=== PATIENT | female | born 1990 | race Hispanic/Latino ===

== ENCOUNTER 2023-06-29 12:10 | Emergency (ER) | payer MEDICARE ==
[~2023-06-29] VITALS: Ht 172.7 cm; Wt 102.1 kg
[2023-06-29 13:08] LABS: BASOPHILS # (AUTO) 0.06 K/uL (0.00-0.20); BASOPHILS % (AUTO) 0.6 % (0.0-5.0); EOSINOPHILS # (AUTO) 0.26 K/uL (0.00-0.70); EOSINOPHILS % (AUTO) 2.5 % (0.0-8.0); HEMATOCRIT 40.2 % (36-48); IMMATURE GRANULOCYTE ABSOLUTE 0.03 K/uL (0-1); LYMPHOCYTES # (AUTO) 4.2 K/uL (1.0-4.8); LYMPHOCYTES % (AUTO) 40.5 % (21.0-51.0); MEAN CORPUSCULAR HEMOGLOBIN 28.6 pg (27.0-33.0); MEAN CORPUSCULAR HGB CONC 33.6 g/dL (32.0-36.0); MEAN CORPUSCULAR VOLUME 85.2 fL (79-99); MONOCYTES # (AUTO) 0.5 K/uL (0.1-1.0); MONOCYTES % (AUTO) 5.1 % (3.0-13.0); NEUTROPHILS # (AUTO) 5.3 K/uL (1.8-7.7); PLATELET COUNT (AUTO) 194 K/uL (130-400); RED BLOOD CELL COUNT(AUTO) 4.72 MIL/uL (4.00-5.50); RED CELL DISTRIBUTION WIDTH 15.6 % (11.0-15.5); WHITE BLOOD COUNT (AUTO) 10.4 K/uL (4.8-10.8)
[2023-06-29] MEDS: 0.9%NACL 1000ML 1,000 ML IV ONE (13:17)
[2023-06-29] MEDS: KETOROLAC 30MG VIAL (30MG/ML) IVP ONE (13:18)
[2023-06-29 13:21] LABS: APPEARANCE,URINE CLOUDY (CLEAR); BILIRUBIN,URINE NEGATIVE (NEGATIVE); COLOR,URINE YELLOW (YELLOW); GLUCOSE, URINE (UA) NEGATIVE (NEGATIVE); KETONES,URINE NEGATIVE (NEGATIVE); LEUKOCYTE ESTERASE ,URINE 250 Leu/uL (NEGATIVE); NITRATE,URINE NEGATIVE (NEGATIVE); OCCULT BLOOD,URINE NEGATIVE (NEGATIVE); PH,URINE 5.5 (5.0-8.0); PROTEIN,URINE NEGATIVE (NEGATIVE); UROBILINOGEN,URINE 0.2 mg/dL (0.2-1.0)
[2023-06-29 13:23] LABS: ALBUMIN 3.3 g/dL (3.5-5.0); BILIRUBIN,TOTAL 0.5 mg/dL (0.2-1.0); CREATININE 0.9 mg/dL (0.5-1.0); POTASSIUM 3.9 mmol/L (3.5-5.1); TOTAL PROTEIN, SERUM 7.9 g/dL (6.0-8.3)
[2023-06-29 13:29] LABS: HCG,QUALITATIVE URINE NEGATIVE (NEGATIVE)
[2023-06-29 13:32] VITALS: BP 130/90; PULSE 61; RESP 14
[2023-06-29 13:33] LABS: ADD UA MICROSCOPIC YES
[2023-06-29 13:35] LABS: BACTERIA,URINE RARE /HPF (None Seen); SQUAMOUS EPITHELIAL CELL,UR MANY /HPF (0-2)
[2023-06-29] MEDS ORDERED: AMOX1TAB16 PO (15:11)
[2023-06-29] MEDS ORDERED: PHEN-847 PO (15:11)
== END 2023-06-29 16:31 | disposition home or self-care (01) ==
LOC: EDH 12:10
DX: N30.01 Acute cystitis with hematuria (principal); N23 Unspecified renal colic; Z88.5 Allergy status to narcotic agent
CPT/HCPCS: 99285; 74176; 96374; 96361; 80053; 83690; 85025; 87088; 81001; 81025; 36415; J7030; J1885

== ENCOUNTER 2023-07-18 13:13 | Emergency (ER) | payer MEDICARE ==
[~2023-07-18] VITALS: Ht 172.7 cm; Wt 103.9 kg
[~2023-07-18 13:13] MED LIST: AMOX1TAB16 PO; PHEN-847 PO
[2023-07-18 13:58] LABS: BASOPHILS # (AUTO) 0.04 K/uL (0.00-0.20); BASOPHILS % (AUTO) 0.3 % (0.0-5.0); EOSINOPHILS # (AUTO) 0.19 K/uL (0.00-0.70); EOSINOPHILS % (AUTO) 1.4 % (0.0-8.0); HEMATOCRIT 43.5 % (36-48); IMMATURE GRANULOCYTE ABSOLUTE 0.05 K/uL (0-1); LYMPHOCYTES # (AUTO) 2.3 K/uL (1.0-4.8); LYMPHOCYTES % (AUTO) 16.4 % (21.0-51.0); MEAN CORPUSCULAR HEMOGLOBIN 29.1 pg (27.0-33.0); MEAN CORPUSCULAR HGB CONC 33.1 g/dL (32.0-36.0); MEAN CORPUSCULAR VOLUME 87.9 fL (79-99); MONOCYTES # (AUTO) 0.8 K/uL (0.1-1.0); MONOCYTES % (AUTO) 5.5 % (3.0-13.0); NEUTROPHILS # (AUTO) 10.7 K/uL (1.8-7.7); PLATELET COUNT (AUTO) 207 K/uL (130-400); RED BLOOD CELL COUNT(AUTO) 4.95 MIL/uL (4.00-5.50); RED CELL DISTRIBUTION WIDTH 14.8 % (11.0-15.5); WHITE BLOOD COUNT (AUTO) 14.1 K/uL (4.8-10.8)
[2023-07-18 14:09] LABS: ALBUMIN 3.2 g/dL (3.5-5.0); BILIRUBIN,TOTAL 0.6 mg/dL (0.2-1.0); CREATININE 0.9 mg/dL (0.5-1.0); POTASSIUM 4.1 mmol/L (3.5-5.1); TOTAL PROTEIN, SERUM 7.9 g/dL (6.0-8.3)
[2023-07-18] MEDS: ONDANSETRON ODT 4MG TAB SL ONE (14:25)
[2023-07-18] MEDS: METOCLOPRAMIDE 10 MG TABLET PO ONE (14:25)
[2023-07-18] MEDS: FAMOTIDINE 20MG TAB PO ONE (14:25)
[2023-07-18 14:53] LABS: APPEARANCE,URINE CLOUDY (CLEAR); BILIRUBIN,URINE NEGATIVE (NEGATIVE); COLOR,URINE YELLOW (YELLOW); GLUCOSE, URINE (UA) NEGATIVE (NEGATIVE); KETONES,URINE NEGATIVE (NEGATIVE); LEUKOCYTE ESTERASE ,URINE 500 Leu/uL (NEGATIVE); NITRATE,URINE 2+ (NEGATIVE); PH,URINE 5.5 (5.0-8.0); PROTEIN,URINE 20 mg/dL (NEGATIVE); UROBILINOGEN,URINE 0.2 mg/dL (0.2-1.0)
[2023-07-18 15:01] LABS: ADD UA MICROSCOPIC YES
[2023-07-18 15:03] LABS: BACTERIA,URINE FEW /HPF (None Seen); MUCUS,URINE RARE LPF (None Seen); NON-SQUAMOUS EPITHELIAL CELL 4 /HPF (0-2); SQUAMOUS EPITHELIAL CELL,UR FEW /HPF (0-2); WBC,URINE 51-100 /HPF (0-1)
[2023-07-18] MEDS ORDERED: ONDA4TAB10 PO (16:21)
[2023-07-18] MEDS ORDERED: CEFD300C3 PO (16:21)
[2023-07-18 16:44] VITALS: BP 141/84; PULSE 81; RESP 18; O2SAT 99
== END 2023-07-18 17:01 | disposition home or self-care (01) ==
LOC: EDH 13:13
DX: K58.1 Irritable bowel syndrome with constipation (principal); K57.90 Diverticulosis of intestine, part unspecified, without perforation or abscess without bleeding; N39.0 Urinary tract infection, site not specified; E11.9 Type 2 diabetes mellitus without complications; Z79.899 Other long term (current) drug therapy; Z90.710 Acquired absence of both cervix and uterus; Z98.890 Other specified postprocedural states; Z88.8 Allergy status to other drugs, medicaments and biological substances; Z88.5 Allergy status to narcotic agent
CPT/HCPCS: 36415; 74021; 80053; 81001; 81025; 85025; 87077; 87088; 87186

== ENCOUNTER 2024-09-13 20:25 | Emergency (ER) | payer MEDICARE ==
[~2024-09-13] VITALS: Ht 172.7 cm; Wt 127.0 kg
[~2024-09-13 20:25] MED LIST changes: +CEFD300C3 PO; +ONDA-243 PO
[2024-09-13] MEDS: NEOMY SULF/BACITRA/POLYMYXIN B 1 EACH PACKET TP ONE (21:04)
[2024-09-13] MEDS: LIDOCAINE HCL 1% 20 ML VIAL INJ ONE (21:04)
[2024-09-13] MEDS ORDERED: CEPH500B PO (21:50)
--- NOTE | 2024-09-13 21:51 | ERN ---
ED Note History of Present Illness Stated Complaint: LACERATION L WRIST Chief Complaint: Laceration/Avulsion Time Seen by MD: 20:29 Time Seen by Midlevel: 20:29 Dictation: The patient is a 34-year-old female with a history of diabetes, anxiety, bipolar who presents to the emergency department with complaints of laceration to left wrist onset prior to arrival. Patient reports that she was shaving when she accidentally injured her wrist. Patient denies any suicidal or homicidal ideations. Patient unknown last tetanus. Allergies: Coded Allergies: morphine (Unverified Allergy, Unknown, 06/29/23) Home Meds Active Scripts Ondansetron (Ondansetron Odt) 4 Mg Tab.rapdis, 4 MG PO Q4H PRN for NAUSEA, #20 TAB Prov:VALDO FLOWERSLUPE RIGGING ENGINEER 07/18/23 Cefdinir (Cefdinir) 300 Mg Capsule, 300 MG PO BID for 10 Days, #20 CAP Prov:FLOWERSDAYRONMARTHA RIGGING ENGINEER 07/18/23 Phenazopyridine HCl (Pyridium) 200 Mg Tab, 200 MG PO TIDPC for 5 Days, #15 TAB TAKE WITH FOOD TO PREVENT STOMACH UPSET. Prov:DO CHRISTENSEN NP 06/29/23 Amoxicillin/Potassium Clav (Amox Tr-K Clv 875-125 mg Tab) 875 Mg-125 Mg Tablet, 1 EACH PO BID for 7 Days, #14 TAB 0 Refills Prov:DO CHRISTENSEN [facility]END[facility] 06/29/23 Past Medical History Past Medical History: Anxiety, Bipolar, Diabetes-Type II, Kidney Stone Additional Past Medical Hx: PTSD Surgical History: Hysterectomy, Cholecystectomy, Family History: Negative Social History: Negative, Lives with family RN Note Reviewed/Agreed w/PFSH: Yes Review of System Dictation Constitutional: Negative for fever,chills, and weight loss Eyes: Negative for injury, pain,redness, and discharge ENT: Negative for injury,pain or swelling Cardiovascular: Negative for chest pain, palpitations, and edema Respiratory: Negative for shortness of breath, cough, and wheezing, Abdomen/GI: Negative for abdominal pain, nausea, vomiting, diarrhea, and constipation Back: Negative for injury and pain : Negative for injury, bleeding and discharge MS/Extremity: Negative for injury and deformity Skin: Positive for laceration to left wrist Neuro: Negative for headache, weakness, numbness, tingling, and seizure Psych: Negative for suicide ideation, homicidal ideation, and hallucinations Initial Vital Sign VS Vital Signs Date Time Temp Pulse Resp B/P (MAP) Pulse Ox O2 Delivery O2 Flow Rate FiO2 09/13/24 20:27 98.8 86 16 103/55 94 Room Air 0 Physical Exam Dictation Vital Signs reviewed General Appearance: Alert, oriented x 3, no acute distress, well developed, nourished. Head and Face: non-traumatic. Eyes: PERRL, pink conjunctivas, eyelid no trauma, anterior chamber with arcus senilis. Ears: Pinnas intact and no signs of trauma or erythema ear canals clear and no discharge TM no erythema Nose: No discharge, no bleeding. Oropharynx: Mouth normal, tongue pink. pharynx clear,no erythema, tonsils no exudates, no abscesses noted, mucous membrane moist Neck: Supple, non-tender, no thyromegaly, no masses, no JVD, no bruits Breast:Deferred Chest:No tenderness, no crepitus, no paradoxical movement, no retractions Lungs:Clear, well-ventilated, symmetric, no rales, no wheezing, no rhonchi, no stridor, good breath sounds bilaterally Heart: Regular rate, regular rhythm, no murmur, no gallops Vascular: no peripheral edema, radial pulses 3+ bilaterally, cap refill to left hand less than 2 seconds Abdomen: Soft, positive bowel sounds, nondistended, no guarding, nontender, no rebound, no masses no hepatomegaly, no splenomegaly, no Hernandez's sign, no hernias. Rectal: Deferred Genital: Deferred Neurological: Normal speech, motor function intact, sensory function intact Musculoskeletal: Neck nontender, full range of motion, back nontender, full range of motion, Extremities: nontender, full range of motion Skin: Color pink, dry, no turgor, no rash, no abrasions, no contusions. Horizontal 3 cm laceration to left wrist, bleeding controlled with dressing. Lymphatic: Deferred Results (Laboratory/Radiology) Labs Reviewed?: Yes ED Course ED Course Orders Procedure Category Date Status Time Lidocaine Hcl 1% 20ml PHA 09/13/24 Complete Vial (Lidocaine Hc 21:00 Tetanus,Diphtheria PHA 09/13/24 Complete Tox [Adult] (Diphther 21:00 Acetaminophen 500mg PHA 09/13/24 Complete Tab (Tylenol 500mg T 21:00 Neomy PHA 09/13/24 Complete Sulf/Bacitra/Polymyxin 21:00 Current Medications Medications (Trade) Dose Ordered Sig/Riley Route PRN Reason Start Time Stop Time Status Last Admin Dose Admin Acetaminophen (TYLenol 500MG TAB) 1,000 mg ONCE ONCE PO 09/13/24 21:00 09/13/24 21:01 DC 09/13/24 21:14 Lidocaine HCl (Lidocaine HCl 1% 20ml Vial) 10 ml ONCE ONCE INJ 09/13/24 21:00 09/13/24 21:01 DC 09/13/24 21:04 Neomycin/ Polymyxin/ Bacitracin (Triple Antibiotic Ointment) 1 appl ONCE ONCE TP 09/13/24 21:00 09/13/24 21:01 DC 09/13/24 21:04 Tetanus/ Diphtheria Toxoids Adsorbed (DiphthERIA-teTANUS TOXOID [ADULT]/ DECAVAC) 0.5 ml ONCE ONCE IM 09/13/24 21:00 09/13/24 21:01 DC 09/13/24 21:16 Vital Signs Date Time Temp Pulse Resp B/P (MAP) Pulse Ox O2 Delivery O2 Flow Rate FiO2 09/13/24 20:27 98.8 86 16 103/55 94 Room Air 0 Medical Decision Making MDM The patient is a 34-year-old female with a history of diabetes, anxiety, bipolar who presents to the emergency department with complaints of laceration to left wrist onset prior to arrival. Patient reports that she was shaving when she accidentally injured her wrist. Patient denies any suicidal or homicidal ideations. Patient unknown last tetanus. Patient with laceration to left wrist about3 cm. Laceration was repaired and cleaned. Tetanus was updated. Patient neurovascularly intact. Patient denies suicidal or homicidal ideations. Reports this was accidental. Patient denies any recent suicidal attempt. Denies any hopelessness. Patient denies any hallucinations. Patient calm and cooperative during visit. Patient in no acute distress. Bleeding was controlled after sutures were repair. Patient tolerated sutures well. Patient instructed to follow up with PCP. Wound care discussed with the patient. Differential diagnosis: Laceration, abrasion, abrasion Need for hospitalization: Patient does not meet criteria for hospitalization. There are no social concerns with this patient. Procedure Procedure Dictation: Time and Date Performed: 09/13/2024 INDICATION: Laceration Location: Left wrist Informed consent was obtained. Pre-procedure time out was obtained. Anesthetic: 1% lidocaine Manual prep of skin and wound was done with hibiclens. Foreign Body: NO foreign bodies were identified. Length Repaired: 3 cm Suture used: Three Ethilon # of simple sutures: 4 Aseptic technique was used during the entire procedure. Wound Location: upper extremity Wound's Depth, Shape: superficial, linear Wound Explored: clean Betadine Prep?: Yes Anesthesia: 1% Lidocaine Volume Anesthetic (ccs): 8 Wound Debrided: minimal Wound Repaired With: sutures Suture Size/Type: 3:0, nylon Number of Sutures: 4 DX & DISP Disposition: Discharge Departure Impression: Primary Impression: Laceration of left wrist Condition: Stable Scripts Cephalexin Monohydrate (Keflex) 500 Mg Cap 500 MG PO QID for 7 Days, #28 CAP Prov: JASMYN DELGADO RIGGING ENGINEER 09/13/24 Additional Instructions: Keep your stitches clean and dry. Do not put your stitches under water, such as in a bath, pool, or wright. This can slow healing and raise your chance of getting an infection. Avoid activities or sports that could hurt the area of your stitches for 1-2 weeks. You should call your doctor if you develop any fever, redness or swelling around the cut, or pus draining from the cut. Your sutures will need to be removed in 7-10 days. Please follow up with the your doctor to get stitches removed. Take your medications as prescribed. If anything worsens please return FOLLOW-UP WITH PRIMARY CARE PROVIDER IN 1 TO 2 DAYS. TAKE MEDICATIONS DIRECTED HERE IN THE EMERGENCY ROOM. OKAY TO CONTINUE HOME MEDICATIONS UNLESS OTHERWISE DISCUSSED DURING YOUR VISIT IN THE EMERGENCY ROOM TODAY. RETURN TO YOUR NEAREST EMERGENCY ROOM IF SYMPTOMS WORSEN OR IF THERE IS NO IMPROVEMENT. CALL 911 IF YOU NEED IMMEDIATE ASSISTANCE. TAKE TYLENOL [id number] NEEDED AND IF NO CONTRAINDICATIONS ARE PRESENT. INCREASE ORAL HYDRATION. A WOUND CULTURE OR URINE CULTURE WAS ORDERED HERE IN THE EMERGENCY ROOM DEPARTMENT PLEASE FOLLOW-UP WITH PRIMARY CARE PROVIDER AND ADVISE THEM TO GET REPEAT PORTS FROM OUR FACILITY. IF YOU HAD ANY CRICKET WRAP/SPLINTS THAT WERE APPLIED HERE, PLEASE DO NOT REMOVE THEM UNTIL YOU SEE YOUR PRIMARY CARE OR SPECIALTY. Referrals: AKUA LEO (PCP) Time of Disposition: 21:50 I have reviewed the case, and I agree with, Diagnosis and Plan JASMYN DELGADO [facility] Sep 13, 2024 21:51
[2024-09-13 21:53] VITALS: BP 125/68; PULSE 83; RESP 16; TEMP 97.9; O2SAT 100
== END 2024-09-13 22:00 | disposition home or self-care (01) ==
LOC: EDH 20:25
DX: S61.512A Laceration without foreign body of left wrist, initial encounter (principal); E11.9 Type 2 diabetes mellitus without complications; F31.9 Bipolar disorder, unspecified; Z87.442 Personal history of urinary calculi; Z88.5 Allergy status to narcotic agent; Z90.49 Acquired absence of other specified parts of digestive tract; Z90.710 Acquired absence of both cervix and uterus; W26.8XXA Contact with other sharp object(s), not elsewhere classified, initial encounter; Y93.89 Activity, other specified; Y92.89 Other specified places as the place of occurrence of the external cause; Y99.8 Other external cause status
CPT/HCPCS: 12002; 90471; 90714; 99283

== ENCOUNTER 2024-12-09 18:01 | Emergency (ER) | payer MEDICARE ==
[~2024-12-09] VITALS: Ht 175.3 cm; Wt 136.1 kg
[~2024-12-09 18:01] MED LIST changes: +CEPH500B PO
--- NOTE | 2024-12-09 18:21 | ERN ---
ED Note History of Present Illness Stated Complaint: SUDDEN ONSET BLURRED VISION OS AND L ARM TINGLING Chief Complaint: Dizzy/Light Headed Time Seen by MD: 18:05 Time Seen by Midlevel: 18:05 Dictation: Ms. Pelayo is a 34-year-old female with history of obesity, type 2 diabetes, chronic back pain, anxiety, bipolar depression, PTSD, kidney stones, and GERD who was transported via EMS to the emergency department for evaluation of vision changes. She states that at around 1620 she was cooking a meal when she she became dizzy and she had blurriness from her left eye. She states that she had discomfort to the entirety of the left arm and it felt prickly. She states she has had the same episodes of blurred vision in the past; not recently. She denies recent illness, trauma/fall, fever, chills, shortness of breath, cough, chest pain, palpitations, edema, abdominal pain, nausea, vomiting, hematemesis, constipation, diarrhea, melena, hematochezia, dysuria, headache, seizure, dysarthria, dysphasia, or focal weakness. She denies history of migraine headaches. Her symptoms persisted so she called 911. They report Accu-Chek 141. Upon arrival to the ER normotensive and afebrile with room air SpO2 96%. She states that vision changes have resolved but she still has some discomfort to her left she has no focal weakness, dysarthria, or dysphasia NIHSS=1 PCP: Dr. Chano Leal[facility] Allergies: Coded Allergies: morphine (Unverified Allergy, Unknown, 06/29/23) Home Meds Active Scripts Cephalexin Monohydrate (Keflex) 500 Mg Cap, 500 MG PO QID for 7 Days, #28 CAP Prov:JASMYN DELGADO FIELD CONTRACTOR 09/13/24 Ondansetron (Ondansetron Odt) 4 Mg Tab.rapdis, 4 MG PO Q4H PRN for NAUSEA, #20 TAB Prov:FLOWERSDAYRONMARTHA FIELD CONTRACTOR 07/18/23 Cefdinir (Cefdinir) 300 Mg Capsule, 300 MG PO BID for 10 Days, #20 CAP Prov:FLOWERS,MARTHA FIELD CONTRACTOR 07/18/23 Phenazopyridine HCl (Pyridium) 200 Mg Tab, 200 MG PO TIDPC for 5 Days, #15 TAB TAKE WITH FOOD TO PREVENT STOMACH UPSET. Prov:DO CHRISTENSEN FIELD CONTRACTOR 06/29/23 Amoxicillin/Potassium Clav (Amox Tr-K Clv 875-125 mg Tab) 875 Mg-125 Mg Tablet, 1 EACH PO BID for 7 Days, #14 TAB 0 Refills Prov:DO CHRISTENSEN FIELD CONTRACTOR 06/29/23 Past Medical History Past Medical History: Anxiety, Bipolar, Diabetes-Type II, Kidney Stone, Other (obesity) Additional Past Medical Hx: PTSD Surgical History: Hysterectomy, Cholecystectomy, , Unknown (Ex lap) PSYCH History: anxiety, bipolar, depression, other (PTSD) Family History: Negative Social History: Negative, Lives with family History: Not Applicable RN Note Reviewed/Agreed w/PFSH: Yes Review of System Dictation REVIEW OF SYSTEMS: CONSTITUTIONAL: Patient denies fevers, chills, sweats and weight changes. EYES: Patient denies any visual symptoms. EARS, NOSE, AND THROAT: No difficulties with hearing. No symptoms of rhinitis or sore throat. CARDIOVASCULAR: Patient denies chest pains, palpitations, orthopnea and paroxysmal nocturnal dyspnea. RESPIRATORY: No dyspnea on exertion, no wheezing or cough. GI: No nausea, vomiting, diarrhea, constipation, abdominal pain, hematochezia or melena. : No urinary hesitancy or dribbling. No nocturia or urinary frequency. No abnormal urethral discharge. MUSCULOSKELETAL: No myalgias or arthralgias. Reported left arm pain. NEUROLOGIC: No chronic headaches, no seizures. Patient denies focal weakness, difficulty speaking, facial droop, difficulty swallowing. Reports blurred vision to left eye. Reports "prickly" sensation to left arm. PSYCHIATRIC: Patient denies problems with mood disturbance. No problems with anxiety. Denies recent stressors. ENDOCRINE: No excessive urination or excessive thirst. DERMATOLOGIC: Patient denies any rashes or skin changes. Initial Vital Sign VS Vital Signs Date Time Temp Pulse Resp B/P (MAP) Pulse Ox O2 Delivery O2 Flow Rate FiO2 12/09/24 18:09 98.8 73 16 122/72 96 Room Air 0 12/09/24 19:19 21 Physical Exam Dictation Vital signs: Reviewed. Afebrile. Constitutional: Slightly anxious. Head/Face: Normocephalic, atraumatic. Eyes: Periorbital areas with no swelling, redness, or edema. Lids and lashes are normal. Conjunctival injection is absent. Sclera anicteric. Pupils equal, round, reactive to light. ENT: Pinnas intact and no signs of trauma or erythema. Ear canals clear and no discharge. TMs no erythema. No nasal discharge or bleeding noted. Oropharynx with no exudate, redness, swelling, masses, exudates, or evidence of obstruction. Uvula midline. Mucous membranes moist. Neck: Trachea midline, no masses palpated, and no cervical lymphadenopathy. No swelling. Supple, full range of motion. Chest/Axilla: No tenderness, no crepitus, no paradoxical movement, no retractions. Cardiovascular: Regular rate, regular rhythm, no murmur, no gallops. Symmetric pulses. No peripheral edema. Normotensive; BP 122/72. 12 lead EKG reflects a sinus rhythm. Respiratory: Respirations even and unlabored. Lung sounds clear; no wheezes, rales or rhonchi. Room air spo2 96% Gastrointestinal: Obese. No distention is appreciated. Bowel sounds are normal. No mass or organomegaly . There is no tenderness. No rebound. No rigidity. No voluntary or involuntary guarding. No Hernandez's sign. Neurological: Normal speech, gross motor function intact, speech is clear. No facial droop. No focal weakness. Motor strength 5/5 all extremities. Musculoskeletal/Extremities: All extremities have full range of motion, no pain or tenderness on palpation. Symmetric pulses. Integumentary: Intact. Skin is normal color, warm and dry. Cap refill less than 2 seconds. Results (Laboratory/Radiology) Laboratory/Radiology Laboratory Tests Test 12/09/24 18:28 12/09/24 19:18 White Blood Count 11.8 K/uL (4.8-10.8) H Red Blood Count 4.20 MIL/uL (4.00-5.50) Hemoglobin 12.5 g/dL (12.0-16.0) Hematocrit 38.7 % (36-48) Mean Corpuscular Volume 92.1 fL (79-99) Mean Corpuscular Hemoglobin 29.8 pg (27.0-33.0) Mean Corpuscular Hemoglobin Concent 32.3 g/dL (32.0-36.0) Red Cell Distribution Width 13.2 % (11.0-15.5) Platelet Count 193 K/uL (130-400) Mean Platelet Volume 11.5 fL (7.5-10.5) H Immature Granulocyte % (Auto) 0.3 % (0-1) Neutrophils (%) (Auto) 60.0 % (40.0-77.0) Lymphocytes (%) (Auto) 30.4 % (21.0-51.0) Monocytes (%) (Auto) 5.9 % (3.0-13.0) Eosinophils (%) (Auto) 2.7 % (0.0-8.0) Basophils (%) (Auto) 0.7 % (0.0-5.0) Neutrophils # (Auto) 7.1 K/uL (1.8-7.7) Lymphocytes # (Auto) 3.6 K/uL (1.0-4.8) Monocytes # (Auto) 0.7 K/uL (0.1-1.0) Eosinophils # (Auto) 0.32 K/uL (0.00-0.70) Basophils # (Auto) 0.08 K/uL (0.00-0.20) Absolute Immature Granulocyte (auto 0.03 K/uL (0-1) Nucleated Red Blood Cells 0.0 % (0.0-0.19) Sodium Level 139 mmol/L (136-145) Potassium Level 4.1 mmol/L (3.5-5.1) Chloride Level 103 mmol/L (101-111) Carbon Dioxide Level 25 mmol/L (21-32) Blood Urea Nitrogen 9 mg/dL (7-18) Creatinine 1.1 mg/dL (0.5-1.0) H Glomerular Filtration Rate Calc 67 mL/min (>90) Random Glucose 151 mg/dL (70-105) H Total Calcium 8.2 mg/dL (8.5-10.1) L Magnesium Level 2.00 mg/dL (1.80-2.40) Total Bilirubin 0.3 mg/dL (0.2-1.0) Direct Bilirubin 0.1 mg/dL (0.0-0.3) Aspartate Amino Transf (AST/SGOT) 12 U/L (10-37) Alanine Aminotransferase (ALT/SGPT) 15 U/L (12-78) Alkaline Phosphatase 98 U/L (50-136) Troponin I High Sensitivity < 4 ng/L (4-50) L Total Protein 7.0 g/dL (6.0-8.3) Albumin 3.2 g/dL (3.5-5.0) L Serum Alcohol < 3 mg/dL (0-10) Urine Color YELLOW (YELLOW) Urine Appearance CLEAR (CLEAR) Urine pH 5.5 (5.0-8.0) Urine Specific [place] 1.022 (1.001-1.031) Urine Protein NEGATIVE mg/dL (NEGATIVE) Urine Glucose (UA) NEGATIVE mg/dL (NEGATIVE) Urine Ketones NEGATIVE mg/dL (NEGATIVE) Urine Occult Blood NEGATIVE (NEGATIVE) Urine Nitrate NEGATIVE (NEGATIVE) Urine Bilirubin NEGATIVE mg/dL (NEGATIVE) Urine Urobilinogen 0.2 mg/dL (0.2-1.0) Urine Leukocyte Esterase NEGATIVE Mitch/uL Urine Opiates Screen NEGATIVE (NEGATIVE) Urine Barbiturates Screen NEGATIVE (NEGATIVE) Urine Phencyclidine Screen NEGATIVE (NEGATIVE) Urine Amphetamines Screen NEGATIVE (NEGATIVE) Urine Benzodiazepines Screen NEGATIVE (NEGATIVE) Urine Cocaine Screen NEGATIVE (NEGATIVE) Urine Marijuana (THC) Screen POSITIVE (NEGATIVE) H Labs Reviewed?: Yes EKG Comment: EKG Interpretation: Time Reviewed: 1905 Ventricular rate: 69 bpm MD Interval: 173 ms QRS duration: [address] segment elevation or depression Clinical impression: Sinus rhythm EKG Reviewed and interpreted by Cynthia Lombardo CT Scan Comment: PATIENT: NILE PELAYO MR#: [id number] : 1990 SEX: F AGE: 34 LOCATION: [facility] ORDER 16 STATUS: [facility] REPORT#: [id number] SERVICE 15 REASON: dizziness, left eye blurriness, left arm "prickly" feeling ORDERING PHYSICIAN: JOSHUA VEGA PROCEDURE: HEAD WO - CT HEAD/BRAIN W/O CONTRAST EXAM: CT Head Without IV contrast. CLINICAL HISTORY: dizziness, left eye blurriness, left arm "prickly" feeling TECHNIQUE: Axial computed tomography images of the head/brain without intravenous contrast. COMPARISON: None provided. FINDINGS: BRAIN: No evidence of acute hemorrhage. No mass lesion. No CT evidence for acute territorial infarct. No midline shift or extra-axial collections. VENTRICLES: No hydrocephalus. ORBITS: The orbits are unremarkable. SINUSES AND MASTOIDS: The paranasal sinuses and mastoid air cells are clear. BONES: No fracture. SOFT TISSUES: Unremarkable. IMPRESSION: No acute intracranial abnormality. /[place] DICTATED BY: SHAJI HUFF MD DATE: 12/09/242006 ELECTRONICALLY SIGNED BY: SHAJI HUFF MD DATE: 12/09/242006 ED Course ED Course Orders Procedure Category Date Status Time Cbc With Differential LAB 12/09/24 Complete 18:15 Basic Metabolic Panel LAB 12/09/24 Complete 18:15 Magnesium LAB 12/09/24 Complete 18:15 12 Lead Ekg Tracing- EKG 12/09/24 Complete Technical 18:15 Hepatic Function Panel LAB 12/09/24 Complete 18:15 Troponin I High LAB 12/09/24 Complete Sensitivity 18:15 Urinalysis Profile LAB 12/09/24 Complete 18:15 Alcohol, Blood LAB 12/09/24 Complete 18:15 Drug Screen Urine LAB 12/09/24 Complete 18:15 Visual Acuity Test CPOE 12/09/24 Transmitted (Er) 18:15 Ct Head/Brain W/O CT 12/09/24 Resulted Contrast 18:16 0.9% Nacl 500ml PHA 12/09/24 Complete Iv.Soln (Ns 500ml 20:00 Ketorolac PHA 12/09/24 In Process Tromethamine 15mg/Ml 20:30 Current Medications Medications (Trade) Dose Ordered Sig/Riley Route PRN Reason Start Time Stop Time Status Last Admin Dose Admin Ketorolac Tromethamine (toRADol) 15 mg ONCE ONCE IV 12/09/24 20:30 12/09/24 20:31 Sodium Chloride 500 ml @ 0 mls/hr ONCE ONCE IV 12/09/24 20:00 12/09/24 20:01 DC Vital Signs Date Time Temp Pulse Resp B/P (MAP) Pulse Ox O2 Delivery O2 Flow Rate FiO2 12/09/24 19:19 98.4 73 18 127/67 99 Room Air* 0 21 12/09/24 18:09 98.8 73 16 122/72 96 Room Air 0 Vital signs unremarkable; normotensive and afebrile withroom air spo2 96-99%. Speech is clear, no dysphagia, no dysarthria, no focal weakness. 12 lead EKG reflects a sinus rhythm without ST elevation. STAT noncontrast CT scan of the brain unremarkable. Visual acuity: OD 20/40, OD 20/30, OU 20/40. Laboratory findings as noted below. WBC 11.8, cr 1.1, glucose 151, Ca 8.2, and albumin 3.2. ETOH negative. UDS + marijuana. UA clear. While in the ED she received doses Toradol and NS 500ml IV as bolus. She is wanting to take her home medications. findings were discussed with patient and significant other. Medical Decision Making MDM MDM: Differential diagnosis: IC hemorrhage/CVA, dehydration, ACS, UTI Rationale: Tests considered and ordered secondary to shared decision making include: lab, EKG, CT Previous outside records reviewed: Old ER visits. Risk of complication and/or morbidity or mortality of patient management: None Medications-Per medication reconciliation Need for hospitalization: Patient does not meet criteria for hospitalization. Need for emergency major/minor surgery: No There are no social concerns with this patient. Prescription drug management: None; resume home medications Prescriptions will include symptomatic care Patient's prior external medical records from other ER visits were reviewed by me as indicated. Prior testing and results from previous visits were reviewed. Prior tests were taken into account with medical decision making and resource utilization, independent historian/historians were used to obtain complete medical history. I independently interpreted the test that were performed, results were reviewed by me and considered findings on radiology if ordered. Medical management and examination interpretation discussions were had by me with other qualified healthcare professionals as indicated for the patient's care. DX & DISP Disposition: Discharge Departure Impression: Primary Impression: Blurring of visual image of left eye Additional Impressions: Arm pain, left, Dehydration, mild, Type 2 diabetes mellitus Condition: Stable Additional Instructions: Rest today and avoid strenuous activity or driving until symptoms have completely resolved. Increase her oral hydration (drink at least 6-8 glasses of water daily). Resume normal meals to help stabilize blood sugar and fluid balance. Continue your home meds as prescribed. Follow up with your primary care physician in 3-5 days to review disease results (available on patient portal). You may benefit from referral to Neurology or Ophthalmology for recurrent vision changes. Continue monitoring blood glucose levels. Return to the emergency department immediately if you develop: Recurrent/worsening blurred or double vision. New weakness, numbness, slurred speech, facial drooping, or confusion. Severe sudden headache. Persistent vomiting, chest pain, or shortness of breath. Dizziness or fainting that does not improve with fluids. Avoid marijuana, alcohol or sedating substances which may worsened dizziness or interact with prescribed medications. Keep a record of any future vision or numbness episodes-include time of day, duration, and any triggers. Maintain good hydration, regular meals and adequate rest to prevent reoccurrence. Referrals: CHANO LEAL (PCP) Time of Disposition: 20:25 JOSHUA VEGAP Dec 09, 2024 18:21
[2024-12-09 18:36] LABS: IMMATURE GRANULOCYTE ABSOLUTE 0.03 K/uL (0-1); NUCLEATED RED BLOOD CELLS 0.0 % (0.0-0.19); PLATELET COUNT (AUTO) 193 K/uL (130-400); RED BLOOD CELL COUNT(AUTO) 4.20 MIL/uL (4.00-5.50); RED CELL DISTRIBUTION WIDTH 13.2 % (11.0-15.5); WHITE BLOOD COUNT (AUTO) 11.8 K/uL (4.8-10.8)
[2024-12-09 18:44] LABS: CREATININE 1.1 mg/dL (0.5-1.0); GLOMERULAR FILTR. RATE CALC 67 mL/min (>90); GLUCOSE,RANDOM 151 mg/dL (70-105); SODIUM SERUM 139 mmol/L (136-145); UREA NITROGEN, BLOOD 9 mg/dL (7-18)
[2024-12-09 18:56] LABS: ALCOHOL, BLOOD < 3 mg/dL (0-10); ASPARTATE AMINOTRANSFERASE 12 U/L (10-37); TOTAL PROTEIN, SERUM 7.0 g/dL (6.0-8.3)
--- NOTE | 2024-12-09 19:07 | HMCIMG ---
EXAM: CT Head Without IV contrast. CLINICAL HISTORY: dizziness, left eye blurriness, left arm "prickly" feeling TECHNIQUE: Axial computed tomography images of the head/brain without intravenous contrast. COMPARISON: None provided. FINDINGS: BRAIN: No evidence of acute hemorrhage. No mass lesion. No CT evidence for acute territorial infarct. No midline shift or extra-axial collections. VENTRICLES: No hydrocephalus. ORBITS: The orbits are unremarkable. SINUSES AND MASTOIDS: The paranasal sinuses and mastoid air cells are clear. BONES: No fracture. SOFT TISSUES: Unremarkable. IMPRESSION: No acute intracranial abnormality. /[place]
--- NOTE | 2024-12-09 19:38 | EKG ---
[facility] Test Date: 2024-12-09 Test Time: 19:06:54 Pat Name: NILE PELAYO Department: [facility] Room: Gender: F Nurses' Aide: [id number] : 1990 Requested By: JOSHUA VEGA Order Number: [id number] Reading MD: Katharina White Measurements Intervals [place] Rate: 69 P: 44 MI: 173 QRS: -19 QRSD: 90 T: 45 QT: 420 QTc: 449 Interpretive Statements Sinus rhythm No previous ECG available for comparison Electronically Signed On 12-10-2024 10:25:44 CDT by Katharina White Please click the below link to view image of tracing.
[2024-12-09 19:41] LABS: APPEARANCE,URINE CLEAR (CLEAR); GLUCOSE, URINE (UA) NEGATIVE (NEGATIVE); LEUKOCYTE ESTERASE ,URINE NEGATIVE Leu/uL (NEGATIVE); NITRATE,URINE NEGATIVE (NEGATIVE); OCCULT BLOOD,URINE NEGATIVE (NEGATIVE)
[2024-12-09 19:46] LABS: ADD UA MICROSCOPIC NO
[2024-12-09 19:49] LABS: AMPHET/METH SCREEN,URINE NEGATIVE (NEGATIVE); BARBITURATE SCREEN, URINE NEGATIVE (NEGATIVE); CANNABINOID SCREEN,URINE POSITIVE (NEGATIVE); COCAINE SCREEN,URINE NEGATIVE (NEGATIVE)
[2024-12-09] MEDS: 0.9% NACL 500ML IV.SOLN 500 ML IV ONE (20:12)
[2024-12-09 20:44] VITALS: BP 126/64; PULSE 68; RESP 18; TEMP 98.4; O2SAT 97
== END 2024-12-09 20:53 | disposition home or self-care (01) ==
LOC: EDH 18:01
DX: E86.0 Dehydration (principal); H53.8 Other visual disturbances; E11.9 Type 2 diabetes mellitus without complications; M79.602 Pain in left arm; E66.9 Obesity, unspecified; F31.9 Bipolar disorder, unspecified; Z79.899 Other long term (current) drug therapy; Z87.442 Personal history of urinary calculi; Z88.5 Allergy status to narcotic agent; Z90.49 Acquired absence of other specified parts of digestive tract; Z90.710 Acquired absence of both cervix and uterus
CPT/HCPCS: 99285; 96374; 70450; 80076; 83735; 84484; 80048; 80305; 85025; 36415; 93005; 81003; J1885; J7040